=== PATIENT | female | born 1945 | race Caucasian/White ===

== ENCOUNTER → 2016-09-05 | Outpatient (CLI) | payer BC, MEDICARE ==
[~2016-09-05] MED LIST: ACYCLOVIR; ALPRAZOLAM PO; AMBIEN PO; ANTIVERT; ASPIRIN EC81 M1; ASPIRIN PO; AUGMENTIN875 M1 PO; COZAAR; CYMBALTA; CYMBALTA PO; HYDROCODON-ACE1 EAC7 PO; IMDUR; IMDUR PO; LAMISIL; LASIX; NEXIUM PO; NOVOLOG100 U/M1; PLAVIX; PLAVIX PO; RANEXA1000 MG PO; RANEXA500 MG PO; TRICOR; ZETIA; [UNRECOGNIZED DRUG - OTHER]
[2016-09-05 12:56] LABS: URINE APPEARANCE CLEAR; URINE BILIRUBIN NEG (NEG); URINE BLOOD NEG (NEG); URINE COLOR YELLOW; URINE GLUCOSE 300 MG/DL (NORM); URINE KETONE NEG (NEG); URINE LEUKOCYTE ESTERASE NEG (NEG); URINE NITRATE NEG (NEG); URINE PH 6.5 (5-8); URINE PROTEIN NEG (NEG); URINE UROBILINOGEN 0.2 MG/DL (NORM)
[2016-09-05 12:58] LABS: CALCIUM SERUM 8.4 mg/dL (8.4-10.2); GLOM FILT RATE Estimated 58.4 mL/min (>60); POTASSIUM 4.3 mmol/L (3.5-5.1)
[2016-09-05 13:02] LABS: MICRO INDICATED? NO
== END | disposition home or self-care (01) ==
LOC: SLAB 12:26
PROVIDERS: Internal Medicine Nephrology
DX: N18.3 Chronic kidney disease, stage 3 (moderate) (principal)
CPT/HCPCS: 36415; 80048; 81003

== ENCOUNTER 2016-09-11 20:11 | Emergency (ER) | payer OTHER, MEDICARE, BC ==
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
== END 2016-09-11 21:13 | disposition home or self-care (01) ==
LOC: SED 20:11
DX: S39.012A Strain of muscle, fascia and tendon of lower back, initial encounter (principal); S80.01XA Contusion of right knee, initial encounter; V49.40XA Driver injured in collision with unspecified motor vehicles in traffic accident, initial encounter; Y92.410 Unspecified street and highway as the place of occurrence of the external cause
CPT/HCPCS: 72100; 73562; 99284